=== PATIENT | male | born 1960 | race Caucasian/White ===

== ENCOUNTER 2018-03-08 14:10 | Emergency (ER) | payer SELFPAY ==
[~2018-03-08] VITALS: Ht 175.3 cm; Wt 79.4 kg
--- OUTSIDE RECORDS SUMMARY | 2018-03-08 14:12 | XMS REPORT ---
Author Author [facility] Address Unknown Phone Unavailable Care Team Providers Care Access Clinician Name Role Phone Unavailable Unavailable Problems This patient has no known problems. Allergies, Adverse Reactions, Alerts This patient has no known allergies or adverse reactions. Medications This patient has no known medications. Encounters Start Date/Time End Date/Time Encounter Type Admission Type Attending [facility] Facility Care Department Encounter ID 2017-07-22 00:00:00 2017-09-20 00:00:00 Outpatient [facility] [id number] 2017-08-23 09:54:01 2017-08-23 09:54:01 Outpatient [facility] [id number]
[2018-03-08] MEDS ORDERED: HYDROCODONE/APAP 10MG-325MG TAB PO ONE (14:30)
--- NOTE | 2018-03-08 15:29 | Diagnostic Imaging Report ---
PROCEDURE:X-RAY LEFT KNEE, THREE OR MORE VIEWS COMPARISON:None. INDICATIONS:LEFT KNEE PAIN FINDINGS: The bones are well-mineralized. There are no fractures, subluxations, lytic or blastic lesions. Linear central distal femoral sclerosis. Possible small suprapatellar joint effusion. CONCLUSION: No acute fracture or dislocation of the left knee. 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 Suspected small suprapatellar joint effusion. Dictated by: Joseph Xavier M.D. on 03/08/2018 at 15:31 Electronically approved by: Joseph Xavier M.D. on 03/08/2018 at 15:31
[2018-03-08 17:22] VITALS: BP 174/94
== END 2018-03-08 17:24 | disposition home or self-care (01) ==
LOC: ER 14:10
DX: M25.562 Pain in left knee (principal); S83.92XA Sprain of unspecified site of left knee, initial encounter; R26.2 Difficulty in walking, not elsewhere classified; X50.1XXA Overexertion from prolonged static or awkward postures, initial encounter; Y92.008 Other place in unspecified non-institutional (private) residence as the place of occurrence of the external cause; I10 Essential (primary) hypertension
CPT/HCPCS: 99284